=== PATIENT | female | born 1995 | race Caucasian/White ===

== ENCOUNTER 2020-06-12 09:52 | Emergency (ER) | payer MEDICAID ==
[~2020-06-12] VITALS: Ht 167.6 cm; Wt 86.2 kg
[2020-06-12 10:35] VITALS: Ht 167.6 cm; Wt 86.2 kg
[2020-06-12 12:11] LABS: BASOPHIL % 0.7 % (0.2-1.3); PLATELET COUNT 248 x10^3mcL (179-408); RED CELL DISTRIBUTION WIDTH 13.1 % (12.3-17.7)
[2020-06-12 16:02] VITALS: BP 134/69
== END 2020-06-12 16:02 | disposition home or self-care (01) ==
LOC: ED 09:52
PROVIDERS: Specialist
DX: O20.0 Threatened abortion (principal); Z3A.01 Less than 8 weeks gestation of pregnancy